=== PATIENT | female | born 1990 | race Caucasian/White ===

== ENCOUNTER 2018-05-04 09:31 | Emergency (ER) | payer BC ==
[2015-07-30 09:43] VITALS: BMI 36.6
[~2018-05-04 09:31] MED LIST: AA/A14DR7 OT; ACY200 PO; ACYC-1 PO; ACYC-50 PO; ACYC200O6 PO; ACYC800T99 PO; AMOX1TAB PO; AMOX500T10 PO; BENZ100C4 PO; BUTA-324 PO; BUTA1CAP4 PO; CEFU250T11 PO; CEP250 PO; CEP500 PO; CEPH500C24 PO; CLI150 PO; CLIN300C99 PO; CODE118S5 PO; CYC10 PO; CYCL10TA29 PO; DIPH-543 PO; DIPH-740 PO; DOCU-416 PO; DOCU240C67 PO; DOXY-179 PO; ETON68IM2 SQ; FLUT16SP19 NS; HYDR473S9 PO; IBU600 PO; IBU800 PO; IBUP800T37 PO; KET10 PO; LEVO1TAB31 PO; LOPE1TAB55 PO; LOR5 PO; LOR5/325 PO; Lanolin TP; METO-734 PO; METR-1 PO; NAP250 PO; NAPR500T75 PO; NEOM10SO23 OT; NIT100 PO; NITR-105 PO; NO; NORG1TAB6 PO; NORG1TAB98 PO; OND4 PO; ONDA4TAB PO; ONDA4VIA IVP; OXYC-856 PO; OXYC-865 PO; OXYC5CAP21 PO; PAN40 PO; PER PO; PHENA200 PO; PRENATAL VIT PO; PRENATAL VITAMIN PO; PRO25 PO; PROM-110 PO; ROBC PO; SCOT TD; TRA50 PO; TRAM-420 PO; TRAM-627 PO; VAL500 FT; [UNRECOGNIZED DRUG - REMARK]
[2018-05-04 09:35] VITALS: BP 116/79
[2018-05-04] MEDS ORDERED: BENZ100C4 PO (09:44)
[2018-05-04] MEDS ORDERED: AMOX-362 PO (09:44)
--- NOTE | 2018-05-04 09:44 | ER Report ---
History and Physical Time Seen By MD: 09:39 HPI/ROS CHIEF COMPLAINT: Sore throat cough fever ear pain HISTORY OF PRESENT ILLNESS: [age] female frequent visitor to the emergency room due to insurance issues comes emergency room today with several days of fever MAXIMUM TEMPERATURE of 102 bilateral ear pain right greater than left she also said she felt a pop in her right ear with some serous drainage after which sore throat cough nonproductive Asians a smoker is a smoker 24 hours patient has no nausea vomiting diarrhea has been taking ibuprofen and Tylenol as needed for pain and for fever patient denies recent travel or sick contacts but 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 Gastrointestinal: No vomiting, no abdominal pain. Musculoskeletal: No back pain. Remainder of the 14 system rev: Yes Allergies: Coded Allergies: grapefruit (Verified Allergy, Intermediate, RASH, SLIGHT SWELLING, 02/25/17 ) trazodone (Verified Allergy, Intermediate, DELUSIONS, 02/25/17) Home Meds Reported Medications Acyclovir (ACYCLOVIR) 200 Mg Capsule, 200 MG PO BID, #10 CAP 06/02/17 Reviewed Nurses Notes: Yes Old Medical Records Reviewed: Yes Hx Smoking: Yes (3 cig/day x12yrs) Smoking Status: Current: Every Day Smoker, Former Smoker Exposure to Second Hand Smoke?: Yes Hx Substance Use Disorder: No Hx Alcohol Use: Yes Physical Exam General Appearance: The patient is alert, has no immediate need for airway protection and no current signs of toxicity. [ ] Eyes: Pupils equal and round no injection. Respiratory: Chest is non tender, lungs are clear to auscultation. Cardiac: regular rate and rhythm [ ] Gastrointestinal: Abdomen is soft and non tender, no masses, bowel sounds normal. Musculoskeletal: Neck: Neck is supple and non tender. Extremities have full range of motion and are non tender. Skin: No rashes or lesions. HEENT examination patient with right sided TM no obvious perforation but clear otitis externa correction otitis media with red erythematous on the TM left ear also showing some mild bulging of the TM with consistency of an otitis throat examination shows no tonsillar exudate but some beefy erythematous tonsils no uvular deviation no halitosis no trismus no submandibular lymphadenopathy DIFFERENTIAL DIAGNOSIS: After history and physical exam differential diagnosis was considered for otitis media with effusion upper respiratory infection Medical Decision Making ED Course/Re-evaluation ED Course ED clinical course 27-year-old female otherwise healthy frequent visitor to the ER now currently has insurance we assigned a primary care comes emergency Department today with bilateral ear pain sore throat and fever 100 to she does have examination evidence of otitis media right greater than left of this with an effusion patient be started on amoxicillin or Augmentin for antibiotic coverage she also has a sore throat we will not do a rapid strep is the antibiotic will cover even if the test is positive no x-rays indicated she is afebrile at this time 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 and begin her on antibiotics today Decision to Disposition Date: May 04, 2018 Decision to Disposition Time: 09:42 Depart Departure Impression: Primary Impression: Otitis media Condition: Condition Unchanged Disposition: HOME OR SELF-CARE Referrals: EDWIN ABRAHAM MD 5 Days New Scripts Benzonatate 100 Mg Cap (TESSALON PERLE 100 MG CAP) 100 Mg Capsule 100 MG PO TID, #15 CAP Prov: LEANDRA GRIMALDO MD 05/04/18 Amoxicillin (AMOXICILLIN) 500 Mg Capsule 1 CAP PO Q8H, #15 CAPSULE 0 Refills TAKE ONE CAPSULE BY MOUTH EVERY 8 HOURS Prov: LEANDRA GRIMALDO MD 05/04/18 Patient Instructions: Otitis Media (DC) LEANDRA GRIMALDO MD May 04, 2018 09:44
== END 2018-05-04 09:52 | disposition home or self-care (01) ==
LOC: ER 09:35
DX: H66.91 Otitis media, unspecified, right ear (principal)
CPT/HCPCS: 99282

== ENCOUNTER → 2018-06-15 | Outpatient (CLI) | payer BC ==
[2015-07-30 09:43] VITALS: BMI 36.6
[~2018-06-15] MED LIST changes: +AMOX-362 PO; -ONDA4VIA IVP; +ONDA4VIA3 IVP
== END ==
LOC: LAB 15:31
PROVIDERS: ATTEND Obstetrics & Gynecology
DX: Z32.00 Encounter for pregnancy test, result unknown (principal)
CPT/HCPCS: 36415; 84702

== ENCOUNTER → 2018-07-22 | Outpatient (CLI) | payer BC ==
[2015-07-30 09:43] VITALS: BMI 36.6
--- NOTE | 2018-07-22 09:36 | RADIOLOGY IMAGING REPORT ---
[place] [facility] [place]: Iliana Meyers : 1990 MR: [id number] V: [id number] EXAM DATE: ORDERING PHYSICIAN: EVA JEFFERY TECHNOLOGIST: [place] [facility] [place] Iliana Meyers : 1990 Visit/Account:[id number] Date of Sevice: 07/22/2018 Transvaginal pelvic ultrasound INDICATION: Right-sided pelvic pain with heavy vaginal bleeding COMPARISON: OB ultrasound from April 2015 FINDINGS: Uterus measures 8.5 x 5.1 x 6.2 cm without focal abnormal uterine lesion. Double wall endometrial stripe measures 9 mm and is homogeneous without hypervascularity There is no free fluid in the cul-de-sac. Urinary bladder is empty. There are prominent right-sided periuterine veins Right ovary measures 3.4 x 2.2 x 1.9 cm and shows normal blood flow and contains several small follic les. Left ovary measures 2.4 x 1.9 x 2.7 cm and shows normal blood flow and contains several small follicl es. IMPRESSION: 1. Mildly prominent right-sided periuterine veins. Correlate with any clinical concern for pelvic co ngestion syndrome 2. Otherwise, unremarkable examination Report Dictated By: Mike Green MD at 07/22/2018 9:20 AM Report E-Signed By: Mike Green MD at 07/22/2018 9:32 AM WSN:[id number]
== END ==
LOC: US 02:52
PROVIDERS: ATTEND Nurse Practitioner Family
DX: E28.2 Polycystic ovarian syndrome (principal); N92.0 Excessive and frequent menstruation with regular cycle; N85.2 Hypertrophy of uterus
CPT/HCPCS: 76830

== ENCOUNTER → 2018-10-19 | Outpatient (CLI) | payer BC ==
[2015-07-30 09:43] VITALS: BMI 36.6
--- NOTE | 2018-10-20 08:31 | RADIOLOGY IMAGING REPORT ---
FACILITY: [facility] PATIENT NAME: GENNARO SMALLS : [id number] MR: [id number] V: [id number] EXAM DATE: ORDERING PHYSICIAN: ROMI SHARIF TECHNOLOGIST: Carole Diamond RDMS(ABD,OBGYN,BR),RVT PROCEDURE:US LEFT BREAST COMPLETE COMPARISON:Today's diagnostic mammogram & prior Left breast Ultrasound of 04/28/17. INDICATIONS:LEFT BREAST PAIN, BLOODY NIPPLE DISCHARGE, NIPPLE CRUSTING & PRIOR LUMPECTOMY IN THE LEFT RETROAREOLAR REGION. FINDINGS: Numerous images were obtained throughout the Left breast & the Left retroareolar region. No sonographic abnormality was demonstrated. Today's mammogram likewise demonstrated no abnormality. Therefore clinical follow up recommended for patient's clinical findings. DIAGNOSTIC CATEGORY 1--NEGATIVE. RECOMMENDATIONS: CLINICAL EVALUATION. IMPRESSION: BIRADS 1: Negative. Clinical follow up recommended for patient's clinical findings as today's Left breast Ultrasound & bilateral mammogram appear unremarkable. Dictated by: Nichelle Gaitan M.D. on 10/19/2018 at 10:49 Transcribed by: BLABIR on 10/19/2018 at 14:28 Approved by: Nichelle Gaitan M.D. on 10/20/2018 at 8:30 [facility]
--- NOTE | 2018-10-20 08:31 | RADIOLOGY IMAGING REPORT ---
FACILITY: [facility] PATIENT NAME: GENNARO SMALLS : [id number] MR: [id number] V: [id number] EXAM DATE: ORDERING PHYSICIAN: ROMI SHARIF TECHNOLOGIST: Victorina Jeff PROCEDURE:BILATERAL DIAGNOSTIC DIGITAL MAMMOGRAM WITH CAD ASSISTED INTERPRETATION & 3D TOMOSYNTHESIS COMPARISON:Prior mammograms dated 04/28/17 INDICATIONS:LEFT BREAST PAIN, NIPPLE DISCHARGE, NIPPLE CRUSTING/BLOODY LEFT NIPPLE DISCHARGE/HX PRIOR LEFT LUMPECTOMY FINDINGS: The breasts are almost entirely fatty. The parenchymal pattern has remained stable allowing for difference in mammographic technique & patient positioning. There is no evidence of malignant appearing mass, malignant appearing calcification or other secondary sign of malignancy in either breast. Today's Left breast Ultrasound also demonstrated no abnormality therefore clinical follow up recommended. DIAGNOSTIC CATEGORY 1--NEGATIVE. RECOMMENDATIONS: CLINICAL EVALUATION. IMPRESSION: BIRADS 1: Negative. No mammographic or sonographic abnormality identified to account for patient's Left breast pain, bloody nipple discharge or crusty Left nipple. Therefore clinical follow up recommended. Dictated by: Nichelle Gaitan M.D. on 10/19/2018 at 11:37 Transcribed by: BALBIR on 10/19/2018 at 14:24 Approved by: Nichelle Gaitan M.D. on 10/20/2018 at 8:30 [facility]
== END ==
LOC: MAMO 00:46
PROVIDERS: ATTEND Surgery
DX: N64.4 Mastodynia (principal); N64.52 Nipple discharge; N64.89 Other specified disorders of breast
CPT/HCPCS: 77062; 77066

== ENCOUNTER → 2019-01-10 | Outpatient (CLI) | payer BC ==
[2015-07-30 09:43] VITALS: BMI 36.6
[~2019-01-10] MED LIST changes: +IOPAMIDOL 76% 150 ML INFUS BTL 150 ML ONE
--- NOTE | 2019-01-10 08:55 | RADIOLOGY IMAGING REPORT ---
FACILITY: [facility] - [place] PATIENT NAME: Iliana Meyers : 1990 MR: [id number] V: [id number] EXAM DATE: ORDERING PHYSICIAN: JEROME MAYES TECHNOLOGIST: Location: [facility] Patient: Iliana Meyers : 1990 Visit/Account:[id number] Date of Sevice: 01/10/[address] without and with contrast INDICATION: Retinopathy right eye COMPARISON: Head CT May 10, 2016 TECHNIQUE: Pre and postcontrast head CT performed with sagittal and coronal reformations. 75 mL Isov ue-370 injected. One of the following dose optimization techniques was utilized in the performance o f this exam: automated exposure control; adjustment of the mA and/or kV according to patient size; or use of iterative reconstruction technique. Specific details can be referenced in the facility's rad iology CT exam operational policy. FINDINGS: The basal cisterns, daniel-white differentiation and convexity sulci are maintained. No intracranial h emorrhage, hydrocephalus or midline shift. Normal orbital soft tissues. No apparent parenchymal abn ormality. Clear mastoid air cells. Left maxillary sinus mucous retention cyst measures 2.4 cm and h as increased in size. Mild chronic leftward nasal septum deviation. No acute osseous abnormality. No pathologic intracranial enhancement. No apparent vascular abnormality. 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 IMPRESSION: 1. 2.4 cm left maxillary sinus mucous retention cyst has increased in size. 2. Otherwise normal head CT without and with contrast. Report Dictated By: Frederic Ramirez MD at 01/10/2019 8:42 AM Report E-Signed By: Frederic Ramirez MD at 01/10/2019 8:51 AM WSN:[id number]
== END ==
LOC: CT 01:04
PROVIDERS: ATTEND Nurse Practitioner
DX: H35.00 Unspecified background retinopathy (principal)
CPT/HCPCS: 70470; Q9967

== ENCOUNTER 2019-02-14 07:53 | Emergency (ER) | payer BC ==
[2015-07-30 09:43] VITALS: Wt 90.7 kg
[~2019-02-14 07:53] MED LIST changes: -IOPAMIDOL 76% 150 ML INFUS BTL 150 ML ONE
--- NOTE | 2019-02-14 07:55 | ER Report ---
History and Physical Time Seen By MD: 07:55 HPI/ROS CHIEF COMPLAINT: Cough, congestion stuffy nose generalized malaise HISTORY OF PRESENT ILLNESS: Patient is an otherwise healthy 28-year-old female who presents to the emergency department for evaluation of approximately 8 weeks of cough congestion postnasal drip, generalized malaise and fatigue as well as shortness of breath. She has been seen by her primary care provider and has been on 3 separate rounds of antibiotics to include Augmentin, Keflex and Zithromax without relief in her symptoms. She is on Claritin as well as needs for "allergies". She just states that she's not sleeping well mostly due to cough secondary to postnasal drip worse at nighttime. Patient states she is a smoker but is trying to quit. No fevers or chills. REVIEW OF SYSTEMS: Respiratory: Cough productive of green sputum tinged with blood Cardiovascular: No chest pain, no palpitations. Gastrointestinal: No vomiting, no abdominal pain. Musculoskeletal: No back pain. Allergies: Coded Allergies: grapefruit (Verified Allergy, Intermediate, RASH, SLIGHT SWELLING, 02/25/17) trazodone (Verified Allergy, Intermediate, DELUSIONS, 02/25/17) sertraline (Verified Adverse Reaction, Mild, VOMIT, 02/14/19) Home Meds Active Scripts Fluticasone Prop 44 Mcg (FLOVENT HFA 44 MCG) 44 Mcg Inha, 2 PUFF INH BID, #1 INH 0 Refills Prov:ANNITA GUTIÉRREZ MD 02/14/19 Reported Medications Loratadine (CLARITIN) 10 Mg Tablet, 10 MG PO 02/14/19 Fluticasone Prop 50 Mcg Ns (FLONASE 50 MCG NS) 16 Gm Bailey.susp, 1 SPRAY NS BID, BOT 02/14/19 Acyclovir (ACYCLOVIR) 200 Mg Capsule, 200 MG PO BID, #10 CAP 06/02/17 Discontinued Scripts Benzonatate 100 Mg Cap (TESSALON PERLE 100 MG CAP) 100 Mg Capsule, 100 MG PO TID, #15 CAP Prov:LEANDRA GRIMALDO MD 05/04/18 Amoxicillin (AMOXICILLIN) 500 Mg Capsule, 1 CAP PO Q8H, #15 CAPSULE 0 Refills TAKE ONE CAPSULE BY MOUTH EVERY 8 HOURS Prov:LEANDRA GRIMALDO MD 05/04/18 Past Medical/Surgical History Patient has a past medical history of HSV, chronic ear infections, alcohol use. Hx of breast lumpectomy. Hx Smoking: Yes (3 cig/day x12yrs) Smoking Status: Current: Every Day Smoker, Former Smoker Exposure to Second Hand Smoke?: Yes Hx Substance Use Disorder: No Hx Alcohol Use: Yes Constitutional Vital Sign - Last 24 Hours 02/14/19 02/14/19 02/14/19 02/14/19 07:58 08:00 08:20 08:20 Temp 97.8 Pulse 103 107 85 Resp 20 20 B/P (MAP) 114/73 94/58 (70) Pulse Ox 94 93 95 O2 Delivery Room Air Room Air 02/14/19 02/14/19 08:24 09:00 Pulse 91 88 Resp 20 12 B/P (MAP) 105/63 (77) Physical Exam General/Constitutional: Patient is awake, alert, nontoxic and in no acute respiratory distress. Head: Normocephalic and atraumatic. Eyes: Conjunctival clear, Pupils are equal and reactive to light. Extraocular muscles are intact and symmetrical. Sclera are clear and anicteric. Ears:External canals are clear. Tympanic membranes are clear with normal landmarks and light reflex. Nares: Inflamed turbinates without purulent discharge. Oropharyngeal: Mucous membranes are moist. There is no pharyngeal erythema or exudate. There are no palatal petechiae. Uvula is midline and symmetrical. Positive posterior wall cobblestoning Neck: Supple, no adenopathy. Cardiovascular: Heart is regular rate and rhythm without audible murmurs, rubs or gallops. Pulmonary: Lungs are clear to auscultation bilaterally. There are no wheezes, rales, or rhonchi. Chest rise is symmetrical Abdomen: Soft, nontender, no guarding or peritoneal signs. Extremities: No gross deformities, No peripheral cyanosis. Able to move all 4 extremities. Medical Decision Making EKG/Imaging Imaging [place]AC[place] [facility] [place] PATIENT NAME: Iliana Meyers : 1990 MR: [id number] V: [id number] EXAM DATE: ORDERING PHYSICIAN: ANNITA GUTIÉRREZ TECHNOLOGIST: Location: [facility] - [place] Patient: Iliana Meyers : 1990 Visit/Account:[id number] Date of Sevice: 02/14/2019 Chest with lateral, two views. HISTORY: Cough, shortness of breath. COMPARISON: 08/06/2014. The heart and mediastinum are unremarkable. No bulky adenopathy. Pulmonary vessels are unremarkable. The lungs are clear. The pleural surfaces are unre markable. No pneumothorax. No acute bony abnormalities. IMPRESSION: No evidence of acute cardiopulmonary disease. Report Dictated By: Aarno Gaspar MD at 02/14/2019 8:42 AM Report E-Signed By: Aaron Gaspar MD at 02/14/2019 8:43 AM WSN:[id number] ED Course/Re-evaluation ED Course 02/14/2019 8:51:38 am patient with improved symptoms after albuterol and Atrovent DuoNeb. Chest x-ray negative. Suspect symptoms are likely due to allergy as Gertrudis is experiencing high pollen counts over the past few weeks. We'll continue Flonase to start Flovent as well as albuterol inhaler encourage oral Claritin liquid swish and swallow. And have her follow-up with her primary care provider. Decision to Disposition Date: February 14, 2019 Decision to Disposition Time: 08:52 Depart Departure Latest Vital Signs Vital Signs Date Time Temp Pulse Resp B/P (MAP) Pulse Ox O2 Delivery O2 Flow Rate FiO2 02/14/19 09:00 88 12 105/63 (77) 02/14/19 08:20 95 Room Air 02/14/19 07:58 97.8 Impression: Primary Impression: Environmental allergies Additional Impression: Acute bronchitis Condition: Improved Disposition: HOME OR SELF-CARE Referrals: EVA JEFFERY [facility] FILLING ROOM SWEEPER (PCP) New Scripts Fluticasone Prop 44 Mcg (FLOVENT HFA 44 MCG) 44 Mcg Inha 2 PUFF INH BID, #1 INH 0 Refills Prov: ANNITA GUTIÉRREZ MD 02/14/19 Patient Instructions: Acute Bronchitis (ED), Allergic Rhinitis (ED) Additional Instructions: #1 discontinue use of Flonase #2 start Flovent 2 puffs by mouth twice per day #3 discontinue use of Claritin, start liquid Claritin, swish for 15-30 seconds in your mouth then swallow, see box instructions for dosage. #4 albuterol inhaler: 2 puffs by mouth every 4-6 hours as needed for cough or shortness of breath #5 . Return to the emergency department if he develops worsening shortness of breath, fever of 101.0 or higher or follow-up with your primary care physician if symptoms do not resolve within 1-2 weeks Problem Qualifiers Additional Impression: Acute bronchitis Bronchitis organism: unspecified organism Qualified Codes: J20.9 - Acute bronchitis, unspecified ANNITA GUTIÉRREZ MD February 14, 2019 07:55
[2019-02-14] MEDS ORDERED: ALBUTEROL/IPRATROPIUM 3 ML NEB NEB ONE (08:15)
[2019-02-14] MEDS ORDERED: LORA-802 PO (08:23)
[2019-02-14] MEDS ORDERED: FLUT16SP19 NS (08:23)
--- NOTE | 2019-02-14 08:48 | RADIOLOGY IMAGING REPORT ---
FACILITY: [facility] PATIENT NAME: Iliana Meyers : 1990 MR: [id number] V: [id number] EXAM DATE: ORDERING PHYSICIAN: ANNITA GUTIÉRREZ TECHNOLOGIST: Location: [facility] - [place] Patient: Iliana Meyers : 1990 Visit/Account:[id number] Date of Sevice: 02/14/2019 Chest with lateral, two views. HISTORY: Cough, shortness of breath. COMPARISON: 08/06/2014. The heart and mediastinum are unremarkable. No bulky adenopathy. Pulmonary vessels are unremarkable . The lungs are clear. The pleural surfaces are unremarkable. No pneumothorax. No acute bony abnorm alities. IMPRESSION: No evidence of acute cardiopulmonary disease. Report Dictated By: Aaron Gaspar MD at 02/14/2019 8:42 AM Report E-Signed By: Aaron Gaspar MD at 02/14/2019 8:43 AM WSN:[id number]
[2019-02-14] MEDS ORDERED: ALBUTEROL 8 GM INHALER INH ONE (08:50)
[2019-02-14] MEDS ORDERED: FLU44R INH (08:56)
[2019-02-14 09:00] VITALS: BP 105/63
[2019-02-14] MEDS ORDERED: OXYMETAZOLINE SPRAY 15 ML BTL ENA SCH (09:00)
== END 2019-02-14 09:14 | disposition home or self-care (01) ==
LOC: ER 08:02
DX: T78.40XA Allergy, unspecified, initial encounter (principal); J20.9 Acute bronchitis, unspecified; F17.210 Nicotine dependence, cigarettes, uncomplicated
CPT/HCPCS: 71046; 94640; 99284; J7620